=== PATIENT | female | born 1960 | race Caucasian/White ===

== ENCOUNTER → 2017-05-17 | Outpatient (CLI) | payer MEDICARE, OTHER ==
[~2017-05-17] MED LIST: AMITRIPTYLINE H50 MG PO; ATORVASTATIN CA20 MG PO; BUPROPION XL150 MG PO; IBUPROFEN400 MG PO; IOPAMIDOL 370 MG/ML 200 ML INFUS..BTL INJ ONE; JANUVIA100 MG PO; LISINOPRIL-HCT1 EAC2 PO; LYRICA150 MG PO; METFORMIN HCL500 MG PO; METOCLOPRAMIDE10 MG PO; MONTELUKAST SOD10 MG PO; OXYCODONE-ACET1 EAC3 PO; PIOGLITAZONE HC45 MG PO; RANITIDINE HCL300 M1 PO; SODIUM CHLORIDE 0.9% 50ML 50 ML ONE; SYMBICORT 16010.2 GM INH; TIZANIDINE HCL4 MG PO
[2017-05-17 17:04] LABS: CREATININE, SERUM 0.99 mg/dL (0.57-1.11)
--- NOTE | 2017-05-18 07:25 | Diagnostic Imaging Report ---
EXAMINATION: CT of the neck with contrast HISTORY: Follow-up neck mass COMPARISON: Neck CT on 10/05/2016 TECHNIQUE: Multidetector helical axial images were obtained from the sternal notch through the skull base during intravenous infusion of iodinated contrast material. Images were reconstructed using soft tissue and bone algorithms and were viewed in multiplanar format. Intravenous contrast: 100 mL of Visipaque 05/28/1969. FINDINGS: Mass: Unchanged approximately 1.3 x 0.8 cm well-circumscribed soft tissue density lesion in the superficial lobe of the left parotid gland, associated thin/smooth linear enhancement in the overlying margin/surface of the parotid gland. No definite infiltration of the overlying structures. Nodes: No lymphadenopathy. Sinuses: Improvement in right maxillary sinus opacification, worsening left maxillary sinus opacification. The remaining paranasal sinuses are clear. Oral cavity: Unremarkable. Salivary glands: Right parotid and bilateral submandibular glands unremarkable. Pharynx: Unremarkable. Larynx: Unremarkable. Thyroid gland: Unremarkable. Upper esophagus: Unremarkable. Blood vessels: Unchanged mild atherosclerosis of the carotid bulbs without significant stenosis Bones: Unchanged previously described multilevel degenerative changes. Incidental findings: Grossly unchanged approximately 2 cm, partially calcified lesion in the posterior mediastinum, to the left of the esophagus and inseparable from the esophagus (at about the T3 level). Again the differential diagnosis would include calcified lymphadenopathy, bronchogenic cyst, or mesenchymal tumor arising from the esophagus such as a leiomyoma. IMPRESSION: 1. Unchanged well-circumscribed lesion in the superficial lobe of the left parotid gland, perhaps intraparotid lymph node versus pubic adenoma. 2. No enlarged cervical lymphadenopathy. 3. Stable nonspecific partially calcified posterior mediastinal lesion to the left of the esophagus as detailed above. A follow-up in one year or sooner if clinically indicated is advised. Signed by: Dr. Sima Fried M.D. on 05/18/2017 7:21 AM
== END ==
LOC: CT 15:40
PROVIDERS: ATTEND Surgery
DX: R22.1 Localized swelling, mass and lump, neck (principal); K22.8 Other specified diseases of esophagus
CPT/HCPCS: 36415; 70491; 82565; 84520; Q9967